=== PATIENT | female | born 1990 | race Caucasian/White ===

== ENCOUNTER 2018-02-13 19:20 | Inpatient (IN) | payer MEDICAID, OTHER ==
[2018-02-13] MEDS ORDERED: Sodium Chloride 0.9% 1,000 ML IV STA ×2 (20:43→23:17)
[2018-02-13 21:30] LABS: PH,URINE 6.5 (4.7-8.0); URINE APPEARANCE CLEAR (CLEAR); URINE BILIRUBIN NEGATIVE (NEGATIVE); URINE BLOOD TRACE-INTACT (NEGATIVE); URINE COLOR YELLOW (YELLOW); URINE GLUCOSE (UA) NEGATIVE (NEGATIVE); URINE LEUKOCYTE ESTERASE NEGATIVE Leu/uL (NEGATIVE); URINE PROTEIN NEGATIVE mg/dL (<30 mg/dL); URINE UROBILINOGEN 0.2 E.U./dL (<1 E.U./dL)
[2018-02-13 21:39] LABS: URINE RBC 0 - 2 /hpf (0-2); URINE WBC NEGATIVE /hpf (0-6)
[2018-02-13 22:10] LABS: VENOUS BLOOD GAS BASE EXCESS 0.5 mmol/L (0.0-2.0); VENOUS BLOOD GAS PO2 28 mm/Hg (30-55); VENOUS BLOOD PH 7.34 (7.32-7.43)
[2018-02-13 22:22] LABS: BASO # 0.05 K/mm3 (0.0-2.0); BASO % 0.3 % (0.0-3.0); EOS # 0.3 (0.0-0.7); GRAN # 10.7 (1.4-6.5); GRAN % 67.1 % (50.0-68.0); HEMOGLOBIN 12.6 g/dL (12.0-16.0); LYMPH # 4.1 (1.2-3.4); LYMPH % 25.8 % (22.0-35.0); MEAN CELL VOLUME 70.2 fl (80.0-105.0); MEAN CORPUSCULAR HEMOGLOBIN 22.4 pg (25.0-35.0); MEAN CORPUSCULAR HGB CONC 31.9 g/dl (31.0-37.0); MEAN PLATELET VOLUME 9.3 fl (7.0-11.0); MONO # 0.8 (0.1-0.6); MONO % 4.8 % (1.0-6.0); RBC 5.63 10^6/uL (3.5-6.1); RED CELL DISTRIBUTION WIDTH 21.9 % (11.5-14.5); WHITE BLOOD COUNT 15.9 10^3/ul (4.5-11.0)
[2018-02-13 22:30] LABS: INR 1.21 (0.93-1.08); PARTIAL THROMBOPLASTIN TIME 32.3 Seconds (25.1-36.5); PROTHROMBIN TIME 13.8 SECONDS (9.4-12.5)
[2018-02-13 22:41] LABS: ALB/GLOB RATIO 1.1 (1.1-1.8); ALBUMIN 4.5 g/dL (3.0-4.8); ALT/SGPT 26 U/L (7-56); AST/SGOT 37 U/L (14-36); BLOOD UREA NITROGEN 13 mg/dL (7-21); GFR AFRICAN-AMERICAN > 60; GFR NON-AFRICAN AMERICAN > 60
--- NOTE | 2018-02-14 00:46 | ED PDOC ---
Arrival/HPI - General Chief Complaint: Dizziness/Lightheaded Time Seen by Provider: 02/13/18 20:42 Historian: Patient - History of Present Illness Narrative History of Present Illness (Text): 02/14/18 01:30 27-year-old female presents today with a history of feeling fatigued having intermittent dizziness and having intermittent blurred vision. Patient states she also has been having pain in her arms bilaterally as well as a numbness and tingling sensation in the hands bilaterally. Patient states the tingling sensation in the hands has been going on for the past 2 months. She denies chest pain or shortness of breath. She denies any fevers or chills. Denies URI symptoms. Denies abdominal pain. Denies urinary symptoms. Patient states she just been feeling generally fatigued. Denies any sick contacts at home. No medications have been taken. No other complaints Time/Duration: > week (2 weeks) Symptom Onset: Gradual Symptom Course: Worsening Past Medical History - Provider Review Nursing Documentation Reviewed: Yes - Travel History Have you recently traveled outside [place] w/in the past 3 mons?: No - Infectious Disease Hx of Infectious Diseases: None - Cardiac Hx Cardiac Disorders: No - Pulmonary Hx Respiratory Disorders: No - Neurological Hx Neurological Disorder: No - HEENT Hx HEENT Disorder: No - Renal Hx Renal Disorder: No - Endocrine/Metabolic Hx Endocrine Disorders: No - Hematological/Oncological Hx Blood Disorders: Yes Hx Anemia: Yes Other/Comment: Ferrousitosis - Integumentary Hx Dermatological Disorder: No - Musculoskeletal/Rheumatological Hx Musculoskeletal Disorders: No - Gastrointestinal Hx Gastrointestinal Disorders: No - Genitourinary/Gynecological Hx Genitourinary Disorders: No - Psychiatric Hx Psychophysiologic Disorder: No Hx Substance Use: No - Surgical History Hx Splenectomy: Yes - Anesthesia Hx Anesthesia: Yes Hx Anesthesia Reactions: No Hx Malignant Hyperthermia: No Family/Social History - Physician Review Nursing Documentation Reviewed: Yes Family/Social History: Unknown Family HX Smoking Status: Never Smoked Hx Alcohol Use: No Hx Substance Use: No Allergies/Home Meds Allergies/Adverse Reactions: Allergies Penicillins Allergy (Verified 02/13/18 20:10) RASH Home Medications: Home Meds Medication Instructions Recorded Confirmed Ferrous Sulfate [High Potency Iron] 1 tab PO DAILY 02/13/18 02/13/18 Multivitamin [Daily Vitamin 1 tab PO DAILY 02/13/18 02/13/18 Formula] Review of Systems - Review of Systems Constitutional: Fatigue. absent: Fevers Eyes: Vision Changes. absent: Photophobia, Eye Pain Respiratory: absent: SOB, Cough Cardiovascular: absent: Chest Pain, Palpitations Gastrointestinal: absent: Abdominal Pain, Constipation, Diarrhea, Nausea, Vomiting Genitourinary Female: absent: Dysuria, Frequency, Hematuria Musculoskeletal: absent: Arthralgias, Back Pain, Neck Pain Skin: absent: Rash, Pruritis Neurological: Dizziness. absent: Headache Psychiatric: absent: Anxiety, Depression, Suicidal Ideation Physical Exam Vital Signs Reviewed: Yes Vital Signs Temp Pulse Resp BP Pulse Ox 02/13/18 21:51 91 H 18 125/80 100 02/13/18 19:53 99.7 F H 116 H 18 132/88 99 Temperature: Afebrile Blood Pressure: Normal Pulse: Tachycardic Respiratory Rate: Normal Appearance: Positive for: Well-Appearing, Non-Toxic, Comfortable Pain Distress: None Mental Status: Positive for: Alert and Oriented X 3 - Systems Exam Head: Present: Atraumatic Pupils: Present: PERRL Extroacular Muscles: Present: EOMI Mouth: Present: Moist Mucous Membranes Neck: Present: Normal Range of Motion Respiratory/Chest: Present: Clear to Auscultation, Good Air Exchange. No: Respiratory Distress, Accessory Muscle Use Cardiovascular: Present: Regular Rate and Rhythm, Normal S1, S2. No: Murmurs Abdomen: No: Tenderness, Distention, Peritoneal Signs, Rebound, Guarding Upper Extremity: Present: Normal ROM, Neurovascularly Intact Lower Extremity: Present: Normal ROM, Neurovascularly Intact Neurological: Present: GCS=15, Speech Normal, Motor Func Grossly Intact, Normal Sensory Function Skin: Present: Warm, Dry, Normal Color. No: Rashes Psychiatric: Present: Alert, Oriented x 3 Medical Decision Making ED Course and Treatment: 02/14/18 01:32 27-year-old female presents with generalized fatigue and blurred vision and dizziness Patient was found to be tachycardic in the emergency room CBC White blood cell count 15.9 CMP within normal limits INR 1.12 Urinalysis shows positive blood Chest x-ray no infiltrate or effusion Patient given 2 L of normal saline IV bolus Meclizine given for dizziness CAT scan of the head:FINDINGS: Brain: Multiple areas of white matter hypodensity seen within bilateral deep white matter. No hemorrhage. Ventricles: Unremarkable. No ventriculomegaly. Bones/joints: Unremarkable. No acute fracture. Soft tissues: Unremarkable. Sinuses: Unremarkable as visualized. No acute sinusitis. Mastoid air cells: Unremarkable as visualized. No mastoid effusion. IMPRESSION: Multiple areas of white matter hypodensity seen within bilateral deep white matter. Multiple sclerosis should be considered in this age group. Recommend further workup. I discussed all results in depth with the patient and her mother. Case was discussed with Dr. Graham. He would like the patient admitted to the hospitalist service Case was discussed with Dr. Huerta; accepts admission impression; dizziness r/o MS admit observational status to med/surg Reassessment Condition: Re-examined, Unchanged - Lab Interpretations Lab Results: 02/13/18 21:50 02/13/18 21:50 Lab Results 02/13/18 22:05: pO2 28 L, VBG pH 7.34, VBG pCO2 50.0, VBG HCO3 27.0, VBG Total CO2 28.5 H, VBG O2 Sat (Calc) 66.9 H, VBG Base Excess 0.5, VBG Potassium 4.4, Glucose 109 H, Lactate 1.2, FiO2 21.0, Sodium 138.0, Chloride 106.0, Venous Blood Potassium 4.4 02/13/18 21:50: Sodium 141, Potassium 4.3, Chloride 103, Carbon Dioxide 24, Anion Gap 18, BUN 13, Creatinine 0.6 L, Est GFR ( Amer) > 60, Est GFR ( Non-Af Amer) > 60, Random Glucose 103, Calcium 10.0, Phosphorus 4.4, Magnesium 2.1, Total Bilirubin 0.2, AST 37 H, ALT 26, Alkaline Phosphatase 68, Total Protein 8.5 H, Albumin 4.5, Globulin 4.0, Albumin/Globulin Ratio 1.1 02/13/18 21:50: PT 13.8 H, INR 1.21 H, APTT 32.3 02/13/18 21:50: WBC 15.9 H, RBC 5.63, Hgb 12.6, Hct 39.5, MCV 70.2 L, MCH 22.4 L , MCHC 31.9, RDW 21.9 H, Plt Count 603 H, MPV 9.3, Gran % 67.1, Lymph % (Auto) 25.8, [place] % (Auto) 4.8, Eos % (Auto) 2.0, Baso % (Auto) 0.3, Gran # 10.70 H, Lymph # (Auto) 4.1 H, [place] # (Auto) 0.8 H, Eos # (Auto) 0.3, Baso # (Auto) 0.05 02/13/18 21:10: Urine Color Yellow, Urine Appearance Clear, Urine pH 6.5, Ur Specific Preston <= 1.005, Urine Protein Negative, Urine Glucose (UA) Negative, Urine Ketones Negative, Urine Blood Trace-intact H, Urine Nitrate Negative, Urine Bilirubin Negative, Urine Urobilinogen 0.2, Ur Leukocyte Esterase Negative , Urine RBC 0 - 2, Urine WBC Negative - RAD Interpretation Radiology Orders: 02/13/18 20:42 CHEST PORTABLE [RAD] Stat 02/13/18 21:18 HEAD W/O CONTRAST [CT] Stat - Medication Orders Current Medication Orders: Discontinued Medications Sodium Chloride (Sodium Chloride 0.9%) 1,000 mls @ 999 mls/hr IV .Q1H1M STA Stop: 02/13/18 21:43 Last Admin: 02/13/18 22:02 Dose: 999 mls/hr eMAR Start Stop Document 02/13/18 22:02 HI (Rec: 02/13/18 22:02 [email or web address] Intravenous Solution Start Date 02/13/18 Start Time 21:50 Sodium Chloride (Sodium Chloride 0.9%) 1,000 mls @ 999 mls/hr IV .Q1H1M STA Stop: 02/14/18 00:17 Last Admin: 02/13/18 23:40 Dose: 999 mls/hr eMAR Start Stop Document 02/13/18 23:40 HI (Rec: 02/13/18 23:40 [email or web address] Intravenous Solution Start Date 02/13/18 Start Time 23:40 Meclizine HCl (Antivert) 25 mg PO STAT STA Stop: 02/13/18 23:17 Last Admin: 02/13/18 23:40 Dose: 25 mg Disposition/Present on Arrival - Present on Arrival Any Indicators Present on Arrival: No History of DVT/PE: No History of Uncontrolled Diabetes: No Urinary Catheter: No History of Decub. Ulcer: No History Surgical Site Infection Following: None - Disposition Have Diagnosis and Disposition been Completed?: Yes Diagnosis: Dizziness, Leukocytosis Disposition: HOSPITALIZED Disposition Time: 00:38 Patient Plan: Observation Condition: FAIR
[2018-02-14] MEDS ORDERED: methylPREDNISolone 1 GM in Sodium Chloride 0.9% 250 ML IV ONE (01:41)
--- NOTE | 2018-02-14 02:00 | CP.PCM.HP ---
<LeeFelipe - Last Filed: 02/14/18 02:31> History of Present Illness - History of Present Illness History of Present Illness: PGY-[address] Huerta Ms. Elliott is a 27 year old female with PMH of hereditary spherocytosis s/p splenectomy who presented to ED with dizziness, blurred vision, and numbness/ tingling type pains. She states that the dizziness has been going on for the past two weeks and is getting worse. She states that she feels as if she's going to fall over but denies syncope. The blurred vision has also been getting worse for the past two weeks. She states that she's had constant numbness/ tingling in her hands since December. She's also had numbness/tingling in her arms and legs bilaterally since December but this comes and goes. She denies headaches, changes in sensation, chest pain, shortness of breath, nausea, vomiting, or abdominal pain. PMH: hereditary spherocytosis Medications: none except for vitamin and iron supplements PSH: splenectomy Allergies: penicillin causes urticaria Fam Hx: mother has hereditary spherocytosis Social Hx: denies tobacco and drug use, reports occasional alcohol use. She is currently unemployed and is living with her mother Present on Admission - Present on Admission Any Indicators Present on Admission: No History of DVT/PE: No History of Uncontrolled Diabetes: No Urinary Catheter: No Decubitus Ulcer Present: No Review of Systems - Review of Systems Review of Systems: A 12 point ROS was reviewed with patient and negative except as stated in HPI Past Patient History - Infectious Disease Hx of Infectious Diseases: None - Past Social History Smoking Status: Never Smoked - CARDIAC Hx Cardiac Disorders: No - PULMONARY Hx Respiratory Disorders: No - NEUROLOGICAL Hx Neurological Disorder: No - HEENT Hx HEENT Problems: No - RENAL Hx Chronic Kidney Disease: No - ENDOCRINE/METABOLIC Hx Endocrine Disorders: No - HEMATOLOGICAL/ONCOLOGICAL Hx Blood Disorders: Yes Hx Anemia: Yes Other/Comment: Ferrousitosis - INTEGUMENTARY Hx Dermatological Problems: No - MUSCULOSKELETAL/RHEUMATOLOGICAL Hx Musculoskeletal Disorders: No - GASTROINTESTINAL Hx Gastrointestinal Disorders: No - GENITOURINARY/GYNECOLOGICAL Hx Genitourinary Disorders: No - PSYCHIATRIC Hx Psychophysiologic Disorder: No Hx Substance Use: No - SURGICAL HISTORY Hx Splenectomy: Yes - ANESTHESIA Hx Anesthesia: Yes Hx Anesthesia Reactions: No Hx Malignant Hyperthermia: No Meds Allergies/Adverse Reactions: Allergies Allergy/AdvReac Type Severity Reaction Status Date / Time Penicillins Allergy RASH Verified 02/13/18 20:10 Physical Exam - Constitutional Appears: No Acute Distress - Head Exam Head Exam: ATRAUMATIC, NORMAL INSPECTION, NORMOCEPHALIC - Eye Exam Eye Exam: EOMI, Normal appearance, PERRL - ENT Exam ENT Exam: Mucous Membranes Moist - Neck Exam Neck exam: Positive for: Normal Inspection. Negative for: Lymphadenopathy - Respiratory Exam Respiratory Exam: Clear to Auscultation Bilateral, NORMAL BREATHING PATTERN. absent: Accessory Muscle Use, Rales, Rhonchi, Wheezes - Cardiovascular Exam Cardiovascular Exam: REGULAR RHYTHM, RRR, +S1, +S2. absent: Diastolic murmur, Gallop, JVD, Rubs, Systolic Murmur - GI/Abdominal Exam GI & Abdominal Exam: Normal Bowel Sounds, Soft. absent: Guarding, Organomegaly , Rebound - Extremities Exam Extremities exam: Positive for: normal inspection. Negative for: calf tenderness, pedal edema - Neurological Exam Neurological exam: Alert, CN II-XII Intact, Oriented x3, Reflexes Normal Additional comments: Strength 5/5 in bilateral upper and lower extremities - Psychiatric Exam Psychiatric exam: Normal Affect, Normal Mood - Skin Skin Exam: Dry, Intact, Normal Color, Warm Results - Vital Signs Recent Vital Signs: Last Vital Signs Temp 99.7 F H 02/13/18 19:53 Pulse 80 02/14/18 01:32 Resp 18 02/14/18 01:32 BP 149/83 02/14/18 01:26 Pulse Ox 98 02/14/18 01:32 - Labs Result Diagrams: 02/13/18 21:50 02/13/18 21:50 Assessment & Plan - Assessment and Plan (Free Text) Assessment: Ms. Elliott is a 27 year old female with PMH of hereditary spherocytosis who presents with suspected multiple sclerosis exacerbation. 1. Suspected multiple sclerosis exacerbation -Initial diagnosis but symptoms and imaging are suspicious for multiple sclerosis -Neurology consult -MRI brain w/o contrast ordered -Methylprednisone 1g given for presumed MS exacerbation 2. Leukocytosis -May be secondary to MS exacerbation -Septic w/u completed -Will continue to monitor following methylprednisone treatment 3. History of hereditary spherocytosis -Had splenectomy early in life -Currently asymptomatic Patient seen and discussed with Dr. Huerta attending. Felipe Lee, DO IM Resident PGY-1 <Deniz Huerta - Last Filed: 02/14/18 05:40> Results - Vital Signs Recent Vital Signs: Last Vital Signs Temp 98.7 F 02/14/18 02:00 Pulse 84 02/14/18 02:00 Resp 20 02/14/18 02:00 BP 112/74 02/14/18 02:00 Pulse Ox 98 02/14/18 02:00 - Labs Result Diagrams: 02/13/18 21:50 02/13/18 21:50 Attending/Attestation - Attestation I have personally seen and examined this patient.: Yes I have fully participated in the care of the patient.: Yes I have reviewed all pertinent clinical information: Yes Notes (Text): Patient seen and examined with the residents. Agree with above Symptoms as mentioned with paresthesias of the bilateral upper and lower extremities x2 months will f/u on MRI brain (recommended with Gadolinium); neuro consultation appreciated Pulsed steroids administered with Solumedrol 1g IV Mother at bedside
[2018-02-14] MEDS ORDERED: Iohexol 350 MG/100 ML VIAL ONE (07:59)
[2018-02-14 08:29] LABS: BASO # 0.05 K/mm3 (0.0-2.0); BASO % 0.3 % (0.0-3.0); EOS # 0.2 (0.0-0.7); EOS % 0.9 % (1.5-5.0); GRAN # 11.53 (1.4-6.5); GRAN % 61.4 % (50.0-68.0); HEMOGLOBIN 11.1 g/dL (12.0-16.0); LYMPH % 32.1 % (22.0-35.0); MEAN CELL VOLUME 71.5 fl (80.0-105.0); MEAN CORPUSCULAR HEMOGLOBIN 22.2 pg (25.0-35.0); MEAN PLATELET VOLUME 9.5 fl (7.0-11.0); MONO % 5.3 % (1.0-6.0); RBC 5.01 10^6/uL (3.5-6.1); RED CELL DISTRIBUTION WIDTH 22.2 % (11.5-14.5); WHITE BLOOD COUNT 18.8 10^3/ul (4.5-11.0)
[2018-02-14 08:49] LABS: ALB/GLOB RATIO 1.1 (1.1-1.8); ALBUMIN 3.7 g/dL (3.0-4.8); ALT/SGPT 30 U/L (7-56); AST/SGOT 33 U/L (14-36); BLOOD UREA NITROGEN 9 mg/dL (7-21); CALCIUM 8.8 mg/dL (8.4-10.5); GFR AFRICAN-AMERICAN > 60; GFR NON-AFRICAN AMERICAN > 60
--- NOTE | 2018-02-14 09:11 | CT ---
PROCEDURE: CT HEAD WITHOUT CONTRAST. HISTORY: dizziness COMPARISON: None available. TECHNIQUE: Axial computed tomography images were obtained through the head/brain without intravenous contrast. Radiation dose: Total exam DLP = 864.59 mGy-cm. This CT exam was performed using one or more of the following dose reduction techniques: Automated exposure control, adjustment of the mA and/or kV according to patient size, and/or use of iterative reconstruction technique. FINDINGS: HEMORRHAGE: No intracranial hemorrhage. BRAIN: No mass effect or edema. Mild periventricular white matter lucency with patchy foci of deep/ subcortical lucency. Although this may reflect microvascular white matter ischemic change, given the age of this patient, the possibility of a demyelinating disorder should also be considered. Recommend urologic console to in the appropriate clinical circumstance. VENTRICLES: Unremarkable. No hydrocephalus. CALVARIUM: Unremarkable. PARANASAL SINUSES: Unremarkable as visualized. No significant inflammatory changes. MASTOID AIR CELLS: Unremarkable as visualized. No inflammatory changes. OTHER FINDINGS: None. IMPRESSION: Multifocal white matter ischemic change. Cannot rule out demyelinating disorder. See above. No intracranial mass, hemorrhage or evidence of acute infarct. Preliminary interpretation of this examination was reported by [facility] at 11:41 p.m. on 02/13/2018. There is concurrence of this report with the preliminary interpretation.
--- NOTE | 2018-02-14 09:16 | CARD ---
APPROVED REPORT EKG Measurement Heart [id number] CT [id number] <Conclusion> Normal sinus rhythm NSSTW changes
--- NOTE | 2018-02-14 11:54 | CP.PCM.CON ---
History of Present Illness - History of Present Illness History of Present Illness: Neurology Consult note for Dr. Rapp CC: Dizziness, Bilateral UE numbness HPI: Patient is a 27 year old female with past medical history of hereditary spherocystosis s/p spleenectomy who presented to [facility] complaining of a few week history of dizziness, bulrry vision, numbness and tingling type sensation mostly in her upper extremities on both sides. Patient reports that her symptoms of dizziness have been ongoing for the past 2 weeks and that her feelings of numbness and tingling have been constant for the past month and a half. Her blurry vision is sometimes reported as double vision that occurs primarily during the day and sometimes at night. Denies unsteady gait, falls, loss of vision, spastic jerking movements, poor coordination. Patient denies previous episodes of presenting symptoms. PMH: Hereditary Spherocytosis PSH: Spleenectomy FMH: Mother with Hereditary spherocytosis SOChx: Denies Tobacco, ETOH, ID ALL: PCN (urticaria) MEDS: Vitamins, Iron supplements Review of Systems - Constitutional Constitutional: Headache, Weight Loss (10 pounds unintentional past month). absent: Chills, Fever, Frequent Falls, Night Sweats - EENT Eyes: Blurred Vision, Diplopia. absent: Discharge, Floaters, Loss of Peripheral Vision, Pain Ears: absent: Decreased Hearing, Ear Discharge Nose/Mouth/Throat: absent: Nasal Congestion, Nasal Discharge, Post Nasal Drip, Change in Voice - Cardiovascular Cardiovascular: absent: Chest Pain, Dyspnea - Respiratory Respiratory: absent: Cough, Dyspnea, Hemoptysis - Gastrointestinal Gastrointestinal: absent: Abdominal Pain, Belching, Bloating, Change in Bowel Habits - Genitourinary Genitourinary: absent: Change in Urinary Stream, Difficulty Urinating - Musculoskeletal Musculoskeletal: Numbness (upper extremity foreram and hand b/l). absent: Arthralgias, Atrophy - Integumentary Integumentary: absent: Acne, Alopecia, Change in Hair - Neurological Neurological: Dizziness, Numbness, Headaches, Paresthesias, Tingling. absent: Abnormal Gait, Abnormal Hearing, Abnormal Movements, Confusion, Convulsions, Focal Weakness, Frequent Falls, Loss of Vision, Memory Loss, Sensory Deficit, Syncope, Weakness - Psychiatric Psychiatric: absent: Anxiety, Confusion, Mood Swings - Endocrine Endocrine: absent: Cold Intolorance, Fatigue, Palpitations Past Patient History - Infectious Disease Hx of Infectious Diseases: None - Past Social History Smoking Status: Never Smoked Alcohol: None Drugs: Denies - CARDIAC Hx Cardiac Disorders: No - PULMONARY Hx Respiratory Disorders: No - NEUROLOGICAL Hx Neurological Disorder: No - HEENT Hx HEENT Problems: No - RENAL Hx Chronic Kidney Disease: No - ENDOCRINE/METABOLIC Hx Endocrine Disorders: No - HEMATOLOGICAL/ONCOLOGICAL Hx Blood Disorders: Yes Hx Anemia: Yes Other/Comment: Ferrousitosis - INTEGUMENTARY Hx Dermatological Problems: No - MUSCULOSKELETAL/RHEUMATOLOGICAL Hx Musculoskeletal Disorders: No - GASTROINTESTINAL Hx Gastrointestinal Disorders: No - GENITOURINARY/GYNECOLOGICAL Hx Genitourinary Disorders: No - PSYCHIATRIC Hx Psychophysiologic Disorder: No Hx Substance Use: No - SURGICAL HISTORY Hx Splenectomy: Yes - ANESTHESIA Hx Anesthesia: Yes Hx Anesthesia Reactions: No Hx Malignant Hyperthermia: No Meds Allergies/Adverse Reactions: Allergies Allergy/AdvReac Type Severity Reaction Status Date / Time Penicillins Allergy RASH Verified 02/13/18 20:10 Physical Exam - Constitutional Appears: Non-toxic, No Acute Distress - Head Exam Head Exam: ATRAUMATIC, NORMAL INSPECTION, NORMOCEPHALIC - Eye Exam Eye Exam: EOMI, PERRL - ENT Exam ENT Exam: Mucous Membranes Moist - Respiratory Exam Respiratory Exam: Clear to Auscultation Bilateral, NORMAL BREATHING PATTERN - Cardiovascular Exam Cardiovascular Exam: REGULAR RHYTHM, +S1, +S2 - GI/Abdominal Exam GI & Abdominal Exam: Normal Bowel Sounds, Soft. absent: Tenderness - Extremities Exam Extremities exam: Positive for: full ROM. Negative for: calf tenderness, pedal edema, tenderness - Neurological Exam Neurological exam: Alert, CN II-XII Intact, Normal Gait, Oriented x3, Reflexes Normal Additional comments: Fine motor deficits appreciated Coates to heel test normal Downgoing babinski Negative Rhomberg Coordination intact, mild ataxia of upper extremities b/l negative clonus Strength 5/5 in all four extremities Proximal muscle in UE and LE 5/5 Negative for tremor - Psychiatric Exam Psychiatric exam: Normal Affect, Normal Mood - Skin Skin Exam: Dry, Intact Results - Vital Signs Recent Vital Signs: Last Vital Signs Temp 98.8 F 02/14/18 06:00 Pulse 84 02/14/18 06:00 Resp 20 02/14/18 06:00 BP 107/63 02/14/18 06:00 Pulse Ox 97 02/14/18 06:00 - Labs Result Diagrams: 02/14/18 08:15 02/14/18 08:15 Labs: Laboratory Results - last 24 hr 02/14/18 02/14/18 02/14/18 06:30 08:15 08:15 WBC 18.8 H RBC 5.01 Hgb 11.1 L Hct 35.8 L MCV 71.5 L MCH 22.2 L MCHC 31.0 RDW 22.2 H Plt Count 575 H MPV 9.5 Gran % 61.4 Lymph % (Auto) 32.1 Angelina % (Auto) 5.3 Eos % (Auto) 0.9 L Baso % (Auto) 0.3 Gran # 11.53 H Lymph # (Auto) 6.0 H Angelina # (Auto) 1.0 H Eos # (Auto) 0.2 Baso # (Auto) 0.05 Sodium 143 Potassium 4.4 Chloride 108 H Carbon Dioxide 23 Anion Gap 16 BUN 9 Creatinine 0.5 L Est GFR ( Amer) > 60 Est GFR (Non-Af Amer) > 60 Random Glucose 88 Calcium 8.8 Total Bilirubin 0.5 AST 33 ALT 30 Alkaline Phosphatase 62 Total Protein 7.2 Albumin 3.7 Globulin 3.4 Albumin/Globulin Ratio 1.1 TSH 3rd Generation 4.28 Assessment & Plan - Assessment and Plan (Free Text) Assessment: 27 yo female with past medical history of hereditary spherocytosis s/p spleenectomy who presnted to [facility] with multiple week history of numbness and tingling sensation in her upper and lower extremities. Patient had Head CT preformed showing multifocal white matter ischemic changes, multiple areas of white matter hypodensity seen within bilateral deep white matter suggestive of multiple sclerosis. Paresthesias/numbness of upper extremities b/l - Possible manifestation of Multiple Sclerosis exacerbation - Head CT appreciated see report for details - MRI w/ contrast pending - Head/Neck CTA pending - Lumbar puncture - CSF labs including MBP, IgG index, Oligoclonal bands, protein, glucose, lymphocytes, electrophoresis, NMO antibodies, West Nile Virus, HSV - Solumedrol 1gram administered - Further recommendations per Dr. Rapp Case and Plan discussed with attending, Dr. Dionte Ruggiero PGY-2 - Date & Time Date: 02/14/18 Time: 11:55
--- NOTE | 2018-02-14 12:05 | RAD ---
HISTORY: fatigue COMPARISON: No prior. FINDINGS: LUNGS: No active pulmonary disease. PLEURA: No significant pleural effusion identified, no pneumothorax apparent. CARDIOVASCULAR: Normal. OSSEOUS STRUCTURES: No significant abnormalities. VISUALIZED UPPER ABDOMEN: Normal. OTHER FINDINGS: None. IMPRESSION: No active disease.
[2018-02-14] MEDS ORDERED: Lidocaine 1% Inj (20ml) ONE ×2 (14:24→14:28)
--- NOTE | 2018-02-14 14:57 | PCM.PROC ---
Procedures Attestation:: I certify that I have explained the specified Operation(s) or Procedure(s), risks, benefits and reasonable alternatives to the Patient and/or other person responsible. The opportunity was given to ask questions and all questions answered - Lumbar Puncture Consent Obtained: Written Consent Time Out Performed: Yes Patient Position: Upright Skin Prep: Povidone-Iodine 1% Local Anesthetic Used: Lidocaine 1% Spinal Needle Gauge: 22G Interspace Used: L3-L4 Fluid Initially Obtained: Clear Complications: None
--- NOTE | 2018-02-14 15:46 | CT ---
PROCEDURE: CT Angiography of the neck with contrast HISTORY: Dizziness COMPARISON: Comparison made with concurrent CT scan brain. TECHNIQUE: Contiguous axial images of the neck were obtained from the level of the skull-base to the superior mediastinum in the arteriographic phase of enhancement. Coronal and sagittal reformats or also generated. IV contrast dose: 400 cc Omnipaque 350 contrast material Radiation Dose - DLP: 467.86 mGy-cm This CT exam was performed using one or more of the following dose reduction techniques: Automated exposure control, adjustment of the mA and/or kV according to patient size, and/or use of iterative reconstruction technique. FINDINGS: Aortic arch is patent. The right brachiocephalic and left common carotid artery arise from a common trunk. RIGHT CAROTID ARTERIES: Common Carotid Artery: Normal. Carotid Bifurcation: Normal. Internal Carotid Artery:Normal. External Carotid Artery (proximal branches): Normal. LEFT CAROTID ARTERIES: Common Carotid Artery: Normal. Carotid Bifurcation: Normal. Internal Carotid Artery:Normal. External Carotid Artery (proximal branches): Normal. VERTEBRAL ARTERIES: Right Vertebral Artery: Normal. Left Vertebral Artery: Normal. OTHER FINDINGS: The note made of mildly enlarged bilateral submandibular and right jugular digastric lymph nodes. IMPRESSION: Normal CT Angiography of the neck.
[2018-02-15 06:54] LABS: BASO # 0.01 K/mm3 (0.0-2.0); GRAN # 18.68 (1.4-6.5); GRAN % 81.1 % (50.0-68.0); HEMOGLOBIN 11.4 g/dL (12.0-16.0); LYMPH # 3.2 (1.2-3.4); LYMPH % 13.7 % (22.0-35.0); MEAN CELL VOLUME 71.3 fl (80.0-105.0); MEAN CORPUSCULAR HEMOGLOBIN 22.4 pg (25.0-35.0); MEAN CORPUSCULAR HGB CONC 31.5 g/dl (31.0-37.0); MEAN PLATELET VOLUME 9.1 fl (7.0-11.0); MONO # 1.2 (0.1-0.6); MONO % 5.2 % (1.0-6.0); RBC 5.08 10^6/uL (3.5-6.1); RED CELL DISTRIBUTION WIDTH 22.4 % (11.5-14.5); WHITE BLOOD COUNT 23.1 10^3/ul (4.5-11.0)
[2018-02-15 07:31] LABS: ALB/GLOB RATIO 1.1 (1.1-1.8); ALBUMIN 3.9 g/dL (3.0-4.8); ALT/SGPT 27 U/L (7-56); AST/SGOT 26 U/L (14-36); BLOOD UREA NITROGEN 12 mg/dL (7-21); CALCIUM 9.3 mg/dL (8.4-10.5); GFR AFRICAN-AMERICAN > 60; GFR NON-AFRICAN AMERICAN > 60
[2018-02-15] MEDS ORDERED: Gadodiamide 287 MG/ML VIAL (15ML) IV ONE (12:17)
--- NOTE | 2018-02-15 14:04 | CP.PCM.PN ---
<Catrachito Sinclair - Last Filed: 02/15/18 18:05> Subjective - Date & Time of Evaluation Date of Evaluation: 02/15/18 Time of Evaluation: 11:30 - Subjective Subjective: Pt seen and examined at bedside. Observed ambulating to and from bathroom this am without concerns. States she slept well overnight, tolerating PO diet, only c /o soreness from area of lumbar puncture yesterday. Denies bleeding, abnormal discharge, or headache. States numbness/tingling in upper extremities is improving. Objective - Vital Signs/Intake and Output Vital Signs (last 24 hours): Temp Pulse Resp BP Pulse Ox 98.4 F 68 20 110/65 100 02/15/18 06:00 02/15/18 06:00 02/15/18 06:00 02/15/18 06:00 02/15/18 06:00 Intake and Output: 02/15/18 02/15/18 06:59 18:59 Intake Total 240 Balance 240 - Labs Labs: 02/15/18 06:00 02/15/18 06:00 PT 13.8 SECONDS (9.4-12.5) H 02/13/18 21:50 INR 1.21 (0.93-1.08) H 02/13/18 21:50 APTT 32.3 Seconds (25.1-36.5) 02/13/18 21:50 - Constitutional Appears: Well, Non-toxic, No Acute Distress - Head Exam Head Exam: ATRAUMATIC, NORMAL INSPECTION - Eye Exam Eye Exam: EOMI, Normal appearance, PERRL - ENT Exam ENT Exam: Mucous Membranes Moist, Normal Oropharynx - Neck Exam Neck Exam: Full ROM, Normal Inspection - Respiratory Exam Respiratory Exam: Clear to Ausculation Bilateral, NORMAL BREATHING PATTERN - Cardiovascular Exam Cardiovascular Exam: REGULAR RHYTHM, +S1, +S2 - GI/Abdominal Exam GI & Abdominal Exam: Soft, Normal Bowel Sounds - Extremities Exam Extremities Exam: Full ROM, Normal Capillary Refill, Normal Inspection - Back Exam Back Exam: NORMAL INSPECTION Additional comments: Site of lumbar puncture C/D/I - Neurological Exam Neurological Exam: Alert, Awake, CN II-XII Intact, Oriented x3, Reflexes Normal Neuro motor strength exam: Left Upper Extremity: 5, Right Upper Extremity: 5, Left Lower Extremity: 5, Right Lower Extremity: 5 - Psychiatric Exam Psychiatric exam: Normal Affect, Normal Mood - Skin Skin Exam: Dry, Intact, Normal Color, Warm Assessment and Plan - Assessment and Plan (Free Text) Assessment: 27 year old female with PMH of hereditary spherocytosis who presents with suspected multiple sclerosis exacerbation. 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 Maya, attending Catrachito Sinclair DO PGY-1, Rigger Up Pager #[phone] <Nathaniel Maya - Last Filed: 02/15/18 19:12> Objective - Vital Signs/Intake and Output Vital Signs (last 24 hours): Temp Pulse Resp BP Pulse Ox 99.6 F 70 18 120/69 99 02/15/18 16:30 02/15/18 16:30 02/15/18 16:30 02/15/18 16:30 02/15/18 16:30 Intake and Output: 02/15/18 02/16/18 18:59 06:59 Intake Total 960 Balance 960 - Medications Medications: Current Medications Acetaminophen (Tylenol 325mg Tab) 650 mg PO Q6H PRN PRN Reason: Fever >100.4 F Last Admin: 02/15/18 15:50 Dose: 650 mg Methylprednisolone 1 gm/ (Sodium Chloride) 250 mls @ 500 mls/hr IV DAILY GUANACO Stop: 02/18/18 10:29 - Labs Labs: PT 13.8 SECONDS (9.4-12.5) H 02/13/18 21:50 INR 1.21 (0.93-1.08) H 02/13/18 21:50 APTT 32.3 Seconds (25.1-36.5) 02/13/18 21:50 Attending/Attestation - Attestation I have personally seen and examined this patient.: Yes I have fully participated in the care of the patient.: Yes I have reviewed all pertinent clinical information, including history, physical exam and plan: Yes Notes (Text): 02/15/18 19:09 27 year old female who presents with paresthesias and dizziness. CT head showed multifocal white matter ischemic changes, possible demyelinating disorder. She was started on iv steroids for suspected multiple sclerosis. She is s/p LP yesterday; will follow up on results. MRI brain/spine were done today also suggestive of multiple sclerosis. She is on day 2 on solumedrol. Neurology and PT are following. Leukocytosis likely secondary to iv steroids. Will continue to monitor. Nathaniel Maya MD Hospitalist.
--- NOTE | 2018-02-15 14:05 | MRI ---
EXAM: MR Head Without And With Intravenous Contrast CLINICAL HISTORY: 27 years old, female; Signs and symptoms; Dizziness; Patient HX: Dizziness and tingling all over. Eval for ms; Additional info: Evaluation for ms TECHNIQUE: Magnetic resonance images of the head/brain without and with intravenous contrast in multiple planes. CONTRAST: 15 mL of OMNISCAN administered intravenously. COMPARISON: CT - HEAD W/O CONTRAST 2018-02-13 23:13 FINDINGS: Brain: There are innumerable high signal lesions in the periventricular white matter and right middle cerebellar peduncle, best seen on the flair images. The appearance is compatible with a demyelinating process such as multiple sclerosis. Postcontrast images demonstrate ring enhancement around several lesions, the largest lesion in the right parietal lobe white matter measuring 1.5 cm. Enhancement may indicate active demyelination. No hemorrhage. No acute infarct. Ventricles: Unremarkable. No ventriculomegaly. Bones/joints: Unremarkable. Sinuses: Unremarkable as visualized. No acute sinusitis. Mastoid air cells: Unremarkable as visualized. No mastoid effusion. Orbits: Unremarkable as visualized. IMPRESSION: There are innumerable high signal lesions in the periventricular white matter and right middle cerebellar peduncle, best seen on the flair images. The appearance is compatible with a demyelinating process such as multiple sclerosis. Postcontrast images demonstrate ring enhancement around several lesions, the largest lesion in the right parietal lobe white matter measuring 1.5 cm. Enhancement may indicate active demyelination.
--- NOTE | 2018-02-15 14:20 | MRI ---
EXAM: MR Cervical Spine Without And With Intravenous Contrast CLINICAL HISTORY: 27 years old, female; Signs and symptoms; Other: Dizziness and tingling all over; Patient HX: Evaluate for ms; Additional info: Evaluation TECHNIQUE: Magnetic resonance images of the cervical spine without and with intravenous contrast in multiple planes. CONTRAST: 15 mL of Omniscan administered intravenously. COMPARISON: CTA HEAD NECK BUNDLE 2018-02-14 08:21 FINDINGS: There is a 1.2 high signal lesion within the cervical cord at the T2 level consistent with a demyelinating plaque in this patient with suspected multiple sclerosis. There is no abnormal enhancement. There is mild ventral ridging from C3/4 through C6/7 which indent the ventral thecal sac and contribute to mild spinal canal stenosis. There are small superimposed central disc herniations at C5/6 and C6/7. IMPRESSION: 1. There is a 1.2 high signal lesion within the cervical cord at the T2 level consistent with a demyelinating plaque in this patient with suspected multiple sclerosis. There is no abnormal enhancement. 2. There is mild ventral ridging from C3/4 through C6/7 which indent the ventral thecal sac and contribute to mild spinal canal stenosis. There are small superimposed central disc herniations at C5/6 and C6/7.
[2018-02-15] MEDS ORDERED: methylPREDNISolone 1 GM in Sodium Chloride 0.9% 250 ML IV ONE (15:55)
[2018-02-16 07:58] LABS: BASO # 0.01 K/mm3 (0.0-2.0); BASO % 0.1 % (0.0-3.0); GRAN # 13.71 (1.4-6.5); GRAN % 87.6 % (50.0-68.0); HEMOGLOBIN 11.8 g/dL (12.0-16.0); LYMPH # 1.8 (1.2-3.4); LYMPH % 11.8 % (22.0-35.0); MEAN CELL VOLUME 70.9 fl (80.0-105.0); MEAN CORPUSCULAR HEMOGLOBIN 22.3 pg (25.0-35.0); MEAN CORPUSCULAR HGB CONC 31.5 g/dl (31.0-37.0); MEAN PLATELET VOLUME 10.3 fl (7.0-11.0); MONO # 0.1 (0.1-0.6); MONO % 0.5 % (1.0-6.0); RBC 5.29 10^6/uL (3.5-6.1); RED CELL DISTRIBUTION WIDTH 22.4 % (11.5-14.5); WHITE BLOOD COUNT 15.6 10^3/ul (4.5-11.0)
[2018-02-16 08:13] LABS: ALB/GLOB RATIO 1.2 (1.1-1.8); ALBUMIN 4.2 g/dL (3.0-4.8); ALT/SGPT 43 U/L (7-56); AST/SGOT 31 U/L (14-36); BLOOD UREA NITROGEN 15 mg/dL (7-21); CALCIUM 9.3 mg/dL (8.4-10.5); GFR AFRICAN-AMERICAN > 60; GFR NON-AFRICAN AMERICAN > 60
[2018-02-16] MEDS: methylPREDNISolone 1 GM in Sodium Chloride 0.9% 250 ML IV SCH (10:35)
--- NOTE | 2018-02-16 13:34 | CP.PCM.PN ---
Subjective - Date & Time of Evaluation Date of Evaluation: 02/16/18 Time of Evaluation: 13:30 - Subjective Subjective: Ms. Elliott was seen and examined today at bedside. I discussed with her the diagnosis of MS. Her brother was present and the patient gave consent for me to speak with him as well. The patient has spherocytosis and is s/p splenectomy and cholecystectomy. She is already immunocompromised due to the fact that she is asplenic. Choosing a [place] [facility] immune modulating medication will be difficult. However, she has heavy disease burden based on MRI brain. Objective - Vital Signs/Intake and Output Vital Signs (last 24 hours): Temp Pulse Resp BP Pulse Ox 98 F 64 16 116/67 99 02/16/18 06:00 02/16/18 06:00 02/16/18 06:00 02/16/18 06:00 02/16/18 06:00 Intake and Output: 02/16/18 02/16/18 06:59 18:59 Intake Total 480 Balance 480 - Medications Medications: Current Medications Acetaminophen (Tylenol 325mg Tab) 650 mg PO Q6H PRN PRN Reason: Fever >100.4 F Last Admin: 02/15/18 15:50 Dose: 650 mg Methylprednisolone 1 gm/ (Sodium Chloride) 250 mls @ 500 mls/hr IV DAILY GUANACO Stop: 02/18/18 10:29 Last Admin: 02/16/18 10:35 Dose: 500 mls/hr - Labs Labs: 02/16/18 07:00 02/16/18 07:00 PT 13.8 SECONDS (9.4-12.5) H 02/13/18 21:50 INR 1.21 (0.93-1.08) H 02/13/18 21:50 APTT 32.3 Seconds (25.1-36.5) 02/13/18 21:50 - Neurological Exam Additional comments: Neurologically unchanged compared with previous examination. Assessment and Plan (1) Multiple sclerosis Assessment & Plan: This is the first episode and it is difficult to determine the subtype, but it appears to be primary progressive based on MRI. This diagnosis can change later. I recommend that she has a total of 5 infusion of 1000 mg of Solumedrol. Afterward, we will plan for [facility] [facility] prophylactic therapy in the outpatient setting. I recommend PT/OT eval and treatment as well. Thank you. Status: Acute
--- NOTE | 2018-02-16 14:20 | CP.PCM.PN ---
<Catrachito Sinclair - Last Filed: 02/16/18 16:53> Subjective - Date & Time of Evaluation Date of Evaluation: 02/16/18 Time of Evaluation: 11:25 - Subjective Subjective: Pt seen and examined at bedside. Denies any acute complaints, states she slept well overnight, did not need pain medication. C/o occasional dizziness when ambulating, states numbness/tingling in upper extremities is improving. Objective - Vital Signs/Intake and Output Vital Signs (last 24 hours): Temp Pulse Resp BP Pulse Ox 98 F 64 16 116/67 99 02/16/18 06:00 02/16/18 06:00 02/16/18 06:00 02/16/18 06:00 02/16/18 06:00 Intake and Output: 02/16/18 02/16/18 06:59 18:59 Intake Total 480 Balance 480 - Medications Medications: Current Medications Acetaminophen (Tylenol 325mg Tab) 650 mg PO Q6H PRN PRN Reason: Fever >100.4 F Last Admin: 02/15/18 15:50 Dose: 650 mg Methylprednisolone 1 gm/ (Sodium Chloride) 250 mls @ 500 mls/hr IV DAILY GUANACO Stop: 02/18/18 10:29 Last Admin: 02/16/18 10:35 Dose: 500 mls/hr - Labs Labs: 02/16/18 07:00 02/16/18 07:00 PT 13.8 SECONDS (9.4-12.5) H 02/13/18 21:50 INR 1.21 (0.93-1.08) H 02/13/18 21:50 APTT 32.3 Seconds (25.1-36.5) 02/13/18 21:50 - Constitutional Appears: Well, Non-toxic, No Acute Distress - Head Exam Head Exam: ATRAUMATIC, NORMAL INSPECTION, NORMOCEPHALIC - Eye Exam Eye Exam: EOMI, Normal appearance, PERRL - ENT Exam ENT Exam: Mucous Membranes Moist, Normal Oropharynx - Neck Exam Neck Exam: Full ROM, Normal Inspection - Respiratory Exam Respiratory Exam: Clear to Ausculation Bilateral, NORMAL BREATHING PATTERN - Cardiovascular Exam Cardiovascular Exam: REGULAR RHYTHM, +S1, +S2 - GI/Abdominal Exam GI & Abdominal Exam: Soft, Normal Bowel Sounds - Neurological Exam Neurological Exam: Alert, Awake, CN II-XII Intact, Normal Gait, Oriented x3, Reflexes Normal - Psychiatric Exam Psychiatric exam: Normal Affect, Normal Mood - Skin Skin Exam: Dry, Intact, Normal Color, Warm Assessment and Plan - Assessment and Plan (Free Text) Assessment: 27 year old female with PMH of hereditary spherocytosis who presents with new- onset multiple sclerosis exacerbation. Plan: Multiple sclerosis exacerbation -Sxs and imaging suspecting for MS -Neurology consulted, f/u recs -CT: multifocal white matter ischemic change, cannot r/o demyelinating disorder -MRI brain: Innumerable high signal lesions in the periventricular white matter and right cerebellar peduncle, appearance compatible w/ demyelinating process such as multiple sclerosis. Postcontrast images demonstrate ring enhancement around severe lesions, the largest lesion in the R parietal lobe white matter measuring 1.5 cm. Enhancement may indicate active demyelination. -MRI spinal canal cervical: 1.2 high signal lesion within cervical cord at T2 consistent w/ a demyelinating plaque. Mild ventral ridging from C3/4-C6/7 which indent ventral thecal sac and contribute to mild spinal canal stenosis. Small superimposed central disc herniations at C5/6 and C6/7. -C/w steroids for management, tx for [address] Rapp (Neuro), today tx 3 /5. As per Dr. Rapp, pt will need to be on long-term management outpt. -Will continue to monitor clinically Leukocytosis -May be secondary to MS exacerbation/steroid administration -Sepsis w/u completed -Lumbar puncture: CSF glu 93, total protein 84; bacterial infection ruled out, further studies pending. -Will continue to monitor following steroid tx Hx of hereditary spherocytosis -Had splenectomy early in life -Currently asymptomatic Pt seen, examined with, and plan d/w Dr. Maya, attending Catrachito Sinclair DO PGY-1, Child Care Lead Teacher Pager #[phone] <Nathaniel Maya - Last Filed: 02/16/18 17:15> Objective - Vital Signs/Intake and Output Vital Signs (last 24 hours): Temp Pulse Resp BP Pulse Ox 99.4 F 72 20 118/65 98 02/16/18 14:00 02/16/18 14:00 02/16/18 14:00 02/16/18 14:00 02/16/18 14:00 Intake and Output: 02/16/18 02/16/18 06:59 18:59 Intake Total 480 720 Balance 480 720 - Medications Medications: Current Medications Acetaminophen (Tylenol 325mg Tab) 650 mg PO Q6H PRN PRN Reason: Fever >100.4 F Last Admin: 02/15/18 15:50 Dose: 650 mg Methylprednisolone 1 gm/ (Sodium Chloride) 250 mls @ 500 mls/hr IV DAILY GUANACO Stop: 02/18/18 10:29 Last Admin: 02/16/18 10:35 Dose: 500 mls/hr - Labs Labs: 02/16/18 07:00 02/16/18 07:00 PT 13.8 SECONDS (9.4-12.5) H 02/13/18 21:50 INR 1.21 (0.93-1.08) H 02/13/18 21:50 APTT 32.3 Seconds (25.1-36.5) 02/13/18 21:50 Attending/Attestation - Attestation I have personally seen and examined this patient.: Yes I have fully participated in the care of the patient.: Yes I have reviewed all pertinent clinical information, including history, physical exam and plan: Yes Notes (Text): 02/16/18 17:14 27 year old female who presented with paresthesias and dizziness. CT head showed multifocal white matter ischemic changes, possible demyelinating disorder. MRI brain/spine was also suggestive of multiple sclerosis. She is s/ p LP yesterday; will follow up on results. She is on day 3 out of 5 of solumedrol; will monitor for response. Neurology and PT are following. Leukocytosis likely secondary to iv steroids. WBC is improving today. Will continue to monitor. Nathaniel Maya MD Hospitalist.
[2018-02-17 08:19] LABS: BASO # 0.01 K/mm3 (0.0-2.0); BASO % 0.1 % (0.0-3.0); GRAN # 14.14 (1.4-6.5); GRAN % 73.4 % (50.0-68.0); HEMOGLOBIN 11.5 g/dL (12.0-16.0); LYMPH # 3.5 (1.2-3.4); LYMPH % 18.4 % (22.0-35.0); MEAN CELL VOLUME 70.9 fl (80.0-105.0); MEAN CORPUSCULAR HEMOGLOBIN 22.2 pg (25.0-35.0); MEAN CORPUSCULAR HGB CONC 31.3 g/dl (31.0-37.0); MEAN PLATELET VOLUME 9.9 fl (7.0-11.0); MONO # 1.6 (0.1-0.6); MONO % 8.1 % (1.0-6.0); RBC 5.19 10^6/uL (3.5-6.1); WHITE BLOOD COUNT 19.2 10^3/ul (4.5-11.0)
[2018-02-17 08:30] LABS: ALB/GLOB RATIO 1.2 (1.1-1.8); ALBUMIN 3.9 g/dL (3.0-4.8); ALT/SGPT 44 U/L (7-56); AST/SGOT 22 U/L (14-36); BLOOD UREA NITROGEN 20 mg/dL (7-21); CALCIUM 9.1 mg/dL (8.4-10.5); GFR AFRICAN-AMERICAN > 60; GFR NON-AFRICAN AMERICAN > 60
[2018-02-17] MEDS: methylPREDNISolone 1 GM in Sodium Chloride 0.9% 250 ML IV SCH (09:23)
--- NOTE | 2018-02-17 12:53 | CP.PCM.PN ---
Subjective - Date & Time of Evaluation Date of Evaluation: 02/17/18 Time of Evaluation: 12:49 - Subjective Subjective: Neurology Progress Note for Dr. Robles Patient seen and evaluated. No acute events reported overnight. Patient reports improved symptoms from presentation. She denies double vision. She indicates improvement in paraesthesias. Able to ambulate about the room. Objective - Vital Signs/Intake and Output Vital Signs (last 24 hours): Temp Pulse Resp BP Pulse Ox 97.8 F 61 20 103/67 96 02/17/18 06:00 02/17/18 06:00 02/17/18 06:00 02/17/18 06:00 02/17/18 06:00 Intake and Output: 02/17/18 02/17/18 06:59 18:59 Intake Total 960 Balance 960 - Medications Medications: Current Medications Acetaminophen (Tylenol 325mg Tab) 650 mg PO Q6H PRN PRN Reason: Fever >100.4 F Last Admin: 02/15/18 15:50 Dose: 650 mg Methylprednisolone 1 gm/ (Sodium Chloride) 250 mls @ 500 mls/hr IV DAILY GUANACO Stop: 02/18/18 10:29 Last Admin: 02/17/18 09:23 Dose: 500 mls/hr - Labs Labs: 02/17/18 07:35 02/17/18 07:35 PT 13.8 SECONDS (9.4-12.5) H 02/13/18 21:50 INR 1.21 (0.93-1.08) H 02/13/18 21:50 APTT 32.3 Seconds (25.1-36.5) 02/13/18 21:50 - Constitutional Appears: No Acute Distress - Head Exam Head Exam: ATRAUMATIC, NORMAL INSPECTION, NORMOCEPHALIC - Eye Exam Eye Exam: EOMI, PERRL. absent: Nystagmus, Scleral icterus Pupil Exam: absent: Irregular - ENT Exam ENT Exam: Mucous Membranes Moist - Neck Exam Neck Exam: Full ROM - Respiratory Exam Respiratory Exam: Clear to Ausculation Bilateral, NORMAL BREATHING PATTERN - Cardiovascular Exam Cardiovascular Exam: REGULAR RHYTHM, +S1, +S2 - GI/Abdominal Exam GI & Abdominal Exam: Soft, Normal Bowel Sounds - Neurological Exam Neurological Exam: Alert, Awake, CN II-XII Intact, Oriented x3 Additional comments: fine motor deficit, coordination intact Strength 5/5 in all four extremities Gait with mild instability Negative rhomberg - Psychiatric Exam Psychiatric exam: Normal Affect - Skin Skin Exam: Dry, Intact Assessment and Plan - Assessment and Plan (Free Text) Assessment: 27 yo female with past medical history of hereditary spherocytosis s/p splenectomy with clinical and MRI evidence suggestive of Multiple sclerosis Plan: Multiple Sclerosis - Brain MRI 02/15/18 : high signal lesions in the periventricular white matter and right middle cerebellar peduncle best seen on the flair images. Post contrast images demonstrate ring enhancement round several lesions the largest lesion in right parietal lobe white matter measuring 1.5 cm - Neck MRI 02/15/18 : 1.2 high signal lesion within the cervical cord at the T2 level consistent witha a demyelinating plaque, mild spinal canal stenosis, - Patient currently on day 11/14 1 gram Solumdrol therapy - Continue in hospital PT - Recommend for outpatient PT/OT and establishment with MS specialtist - Consult Dr. Garcia with Heme/Onc due to need for prolonged therapy for MS and the patient's hereditary spherocytosis s/p spleenectomy - Further recs per Dr. Robles Case and plan discussed with attending, Dr. Travis Ruggiero PGY-2
--- NOTE | 2018-02-17 16:37 | CP.PCM.PN ---
<Catrachito Sinclair - Last Filed: 02/17/18 16:33> Subjective - Date & Time of Evaluation Date of Evaluation: 02/17/18 Time of Evaluation: 11:05 - Subjective Subjective: Pt seen and examined at bedside. Denies any acute complaints, states she occasionally gets dizzy and ataxic when walking. States her numbness/tingling in upper exts is improving. Objective - Vital Signs/Intake and Output Vital Signs (last 24 hours): Temp Pulse Resp BP Pulse Ox 98.9 F 68 18 126/71 94 L 02/17/18 14:00 02/17/18 14:00 02/17/18 14:00 02/17/18 14:00 02/17/18 14:00 Intake and Output: 02/17/18 02/17/18 06:59 18:59 Intake Total 960 720 Balance 960 720 - Medications Medications: Current Medications Acetaminophen (Tylenol 325mg Tab) 650 mg PO Q6H PRN PRN Reason: Fever >100.4 F Last Admin: 02/15/18 15:50 Dose: 650 mg Methylprednisolone 1 gm/ (Sodium Chloride) 250 mls @ 500 mls/hr IV DAILY GUANACO Stop: 02/18/18 10:29 Last Admin: 02/17/18 09:23 Dose: 500 mls/hr - Labs Labs: 02/17/18 07:35 02/17/18 07:35 PT 13.8 SECONDS (9.4-12.5) H 02/13/18 21:50 INR 1.21 (0.93-1.08) H 02/13/18 21:50 APTT 32.3 Seconds (25.1-36.5) 02/13/18 21:50 - Constitutional Appears: Well, Non-toxic, No Acute Distress - Head Exam Head Exam: ATRAUMATIC, NORMAL INSPECTION, NORMOCEPHALIC - Eye Exam Eye Exam: EOMI, Normal appearance, PERRL - ENT Exam ENT Exam: Mucous Membranes Moist, Normal Oropharynx - Neck Exam Neck Exam: Full ROM, Normal Inspection - Respiratory Exam Respiratory Exam: Clear to Ausculation Bilateral, NORMAL BREATHING PATTERN - Cardiovascular Exam Cardiovascular Exam: REGULAR RHYTHM, +S1, +S2 - GI/Abdominal Exam GI & Abdominal Exam: Soft, Normal Bowel Sounds - Extremities Exam Extremities Exam: Full ROM, Normal Capillary Refill, Normal Inspection - Neurological Exam Neurological Exam: Alert, Awake, CN II-XII Intact, Oriented x3 Additional comments: Dysmetria b/l - Psychiatric Exam Psychiatric exam: Normal Affect, Normal Mood - Skin Skin Exam: Dry, Intact, Normal Color, Warm Assessment and Plan - Assessment and Plan (Free Text) Assessment: 27 year old female with PMH of hereditary spherocytosis who presents with new- onset multiple sclerosis exacerbation. Plan: Multiple sclerosis exacerbation -Sxs and imaging suspecting for MS -Neurology consulted, f/u recs -CT: multifocal white matter ischemic change, cannot r/o demyelinating disorder -MRI brain: Innumerable high signal lesions in the periventricular white matter and right cerebellar peduncle, appearance compatible w/ demyelinating process such as multiple sclerosis. Postcontrast images demonstrate ring enhancement around severe lesions, the largest lesion in the R parietal lobe white matter measuring 1.5 cm. Enhancement may indicate active demyelination. -MRI spinal canal cervical: 1.2 high signal lesion within cervical cord at T2 consistent w/ a demyelinating plaque. Mild ventral ridging from C3/4-C6/7 which indent ventral thecal sac and contribute to mild spinal canal stenosis. Small superimposed central disc herniations at C5/6 and C6/7. -C/w steroids for management, tx for [address] Rapp (Neuro), today tx 4 /5. As per Dr. Rapp, pt will need to be on long-term management outpt. -Will continue to monitor clinically Leukocytosis -May be secondary to MS exacerbation/steroid administration -Sepsis w/u completed -Lumbar puncture: CSF glu 93, total protein 84; bacterial infection ruled out, further studies pending. 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 Baird, attending Catrachito Sinclair DO, PGY-1, Supervisor [employer] Pager #[phone] <Tien Baird - Last Filed: 02/19/18 12:25> Objective - Vital Signs/Intake and Output Vital Signs (last 24 hours): Temp Pulse Resp BP Pulse Ox 99.5 F 61 16 120/73 98 02/18/18 13:33 02/18/18 13:33 02/18/18 13:33 02/18/18 13:33 02/18/18 13:33 - Labs Labs: 02/18/18 09:45 02/18/18 09:45 PT 13.8 SECONDS (9.4-12.5) H 02/13/18 21:50 INR 1.21 (0.93-1.08) H 02/13/18 21:50 APTT 32.3 Seconds (25.1-36.5) 02/13/18 21:50 Attending/Attestation - Attestation I have personally seen and examined this patient.: Yes I have fully participated in the care of the patient.: Yes I have reviewed all pertinent clinical information, including history, physical exam and plan: Yes Notes (Text): 02/19/18 12:24 Medical record note made by the resident after discussion with my direction and input after the patient was personally seen and examined by me. I have reviewed the chart and agree that the record accurately reflects by personal performance of the history, physical exam, data review, and medical decision-making, in the course for the patient. I have also personally directed the plan of care. 27 yo female with past medical history of hereditary spherocytosis s/p splenectomy with clinical and MRI evidence suggestive of Multiple sclerosis ( Brain MRI 02/15/18 : high signal lesions in the periventricular white matter and right middle cerebellar peduncle best seen on the flair images. Post contrast images demonstrate ring enhancement round several lesions the largest lesion in right parietal lobe white matter measuring 1.5 cm, Neck MRI 02/15/18 : 1.2 high signal lesion within the cervical cord at the T2 level consistent witha a demyelinating plaque, mild spinal canal stenosis, Patient currently on day 11/14 1 gram Solumdrol therapy Continue in hospital PT
[2018-02-18 08:01] VITALS: PULSE 61
[2018-02-18 09:52] LABS: GRAN # 13.54 (1.4-6.5); GRAN % 68.9 % (50.0-68.0); HEMOGLOBIN 11.9 g/dL (12.0-16.0); LYMPH # 5.1 (1.2-3.4); LYMPH % 25.7 % (22.0-35.0); MEAN CELL VOLUME 71.6 fl (80.0-105.0); MEAN CORPUSCULAR HEMOGLOBIN 22.5 pg (25.0-35.0); MEAN CORPUSCULAR HGB CONC 31.4 g/dl (31.0-37.0); MEAN PLATELET VOLUME 9.8 fl (7.0-11.0); MONO # 1.1 (0.1-0.6); MONO % 5.4 % (1.0-6.0); RBC 5.29 10^6/uL (3.5-6.1); RED CELL DISTRIBUTION WIDTH 21.8 % (11.5-14.5); WHITE BLOOD COUNT 19.7 10^3/ul (4.5-11.0)
[2018-02-18 10:19] LABS: ALB/GLOB RATIO 1.2 (1.1-1.8); ALBUMIN 3.7 g/dL (3.0-4.8); ALT/SGPT 41 U/L (7-56); AST/SGOT 29 U/L (14-36); BLOOD UREA NITROGEN 19 mg/dL (7-21); CALCIUM 9.1 mg/dL (8.4-10.5); GFR AFRICAN-AMERICAN > 60; GFR NON-AFRICAN AMERICAN > 60
[2018-02-18] MEDS: methylPREDNISolone 1 GM in Sodium Chloride 0.9% 250 ML IV SCH (10:29)
[2018-02-18 13:35] VITALS: BP 120/73; RESP 16; TEMP 99.5; O2SAT 98
[2018-02-18] MEDS ORDERED: Pneumococcal 23-Valent Vaccine IM ONE (14:20)
--- NOTE | 2018-02-18 15:10 | CP.PCM.DIS ---
<Catrachito Sinclair - Last Filed: 02/18/18 14:55> Provider - Provider Date of Admission: 02/15/18 14:54 Attending physician: Tien Baird MD Primary care physician: Roger Graham DO Time Spent in preparation of Discharge (in minutes): 45 Hospital Course - Lab Results Lab Results: Most Recent Lab Values WBC 19.7 10^3/ul (4.5-11.0) H 02/18/18 09:45 RBC 5.29 10^6/uL (3.5-6.1) 02/18/18 09:45 Hgb 11.9 g/dL (12.0-16.0) L 02/18/18 09:45 Hct 37.9 % (36.0-48.0) 02/18/18 09:45 MCV 71.6 fl (80.0-105.0) L 02/18/18 09:45 MCH 22.5 pg (25.0-35.0) L 02/18/18 09:45 MCHC 31.4 g/dl (31.0-37.0) 02/18/18 09:45 RDW 21.8 % (11.5-14.5) H 02/18/18 09:45 Plt Count 580 10^3/uL (120.0-450.0) H 02/18/18 09:45 MPV 9.8 fl (7.0-11.0) 02/18/18 09:45 Gran % 68.9 % (50.0-68.0) H 02/18/18 09:45 Lymph % (Auto) 25.7 % (22.0-35.0) 02/18/18 09:45 Allen % (Auto) 5.4 % (1.0-6.0) 02/18/18 09:45 Eos % (Auto) 0.0 % (1.5-5.0) L 02/18/18 09:45 Baso % (Auto) 0.0 % (0.0-3.0) 02/18/18 09:45 Gran # 13.54 (1.4-6.5) H 02/18/18 09:45 Lymph # (Auto) 5.1 (1.2-3.4) H 02/18/18 09:45 Allen # (Auto) 1.1 (0.1-0.6) H 02/18/18 09:45 Eos # (Auto) 0.0 (0.0-0.7) 02/18/18 09:45 Baso # (Auto) 0.00 K/mm3 (0.0-2.0) 02/18/18 09:45 PT 13.8 SECONDS (9.4-12.5) H 02/13/18 21:50 INR 1.21 (0.93-1.08) H 02/13/18 21:50 APTT 32.3 Seconds (25.1-36.5) 02/13/18 21:50 pO2 28 mm/Hg (30-55) L 02/13/18 22:05 VBG pH 7.34 (7.32-7.43) 02/13/18 22:05 VBG pCO2 50.0 (40-60) 02/13/18 22:05 VBG HCO3 27.0 mmol/l (21-28) 02/13/18 22:05 VBG Total CO2 28.5 mmol.L (22-28) H 02/13/18 22:05 VBG O2 Sat (Calc) 66.9 % (40-65) H 02/13/18 22:05 VBG Base Excess 0.5 mmol/L (0.0-2.0) 02/13/18 22:05 VBG Potassium 4.4 mmol/L (3.6-5.2) 02/13/18 22:05 Sodium 138.0 mmol/L (132-148) 02/13/18 22:05 Chloride 106.0 mmol/L (98-107) 02/13/18 22:05 Glucose 109 mg/dl (65-105) H 02/13/18 22:05 Lactate 1.2 mmol/L (0.7-2.1) 02/13/18 22:05 FiO2 21.0 % 02/13/18 22:05 Sodium 143 mmol/L (132-148) 02/18/18 09:45 Potassium 3.8 mmol/L (3.6-5.0) 02/18/18 09:45 Chloride 105 mmol/L (98-107) 02/18/18 09:45 Carbon Dioxide 27 mmol/L (21-33) 02/18/18 09:45 Anion Gap 15 (10-20) 02/18/18 09:45 BUN 19 mg/dL (7-21) 02/18/18 09:45 Creatinine 0.7 mg/dl (0.7-1.2) 02/18/18 09:45 Est GFR ( Amer) > 60 02/18/18 09:45 Est GFR (Non-Af Amer) > 60 02/18/18 09:45 Random Glucose 176 mg/dL (70-110) H 02/18/18 09:45 Calcium 9.1 mg/dL (8.4-10.5) 02/18/18 09:45 Phosphorus 4.4 mg/dL (2.5-4.5) 02/13/18 21:50 Magnesium 2.1 mg/dL (1.7-2.2) 02/13/18 21:50 Total Bilirubin 0.6 mg/dL (0.2-1.3) 02/18/18 09:45 AST 29 U/L (14-36) 02/18/18 09:45 ALT 41 U/L (7-56) 02/18/18 09:45 Alkaline Phosphatase 53 U/L (38-126) 02/18/18 09:45 Total Protein 7.0 g/dL (5.8-8.3) 02/18/18 09:45 Albumin 3.7 g/dL (3.0-4.8) 02/18/18 09:45 Globulin 3.2 gm/dL 02/18/18 09:45 Albumin/Globulin Ratio 1.2 (1.1-1.8) 02/18/18 09:45 TSH 3rd Generation 4.28 mIU/mL (0.46-4.68) 02/14/18 06:30 Venous Blood Potassium 4.4 mmol/L (3.6-5.2) 02/13/18 22:05 Urine Color Yellow (YELLOW) 02/13/18 21:10 Urine Appearance Clear (CLEAR) 02/13/18 21:10 Urine pH 6.5 (4.7-8.0) 02/13/18 21:10 Ur Specific [place] <= 1.005 (1.005-1.035) 02/13/18 21:10 Urine Protein Negative mg/dL (<30 mg/dL) 02/13/18 21:10 Urine Glucose (UA) Negative mg/dL (NEGATIVE) 02/13/18 21:10 Urine Ketones Negative mg/dL (NEGATIVE) 02/13/18 21:10 Urine Blood Trace-intact (NEGATIVE) H 02/13/18 21:10 Urine Nitrate Negative (NEGATIVE) 02/13/18 21:10 Urine Bilirubin Negative (NEGATIVE) 02/13/18 21:10 Urine Urobilinogen 0.2 E.U./dL (<1 E.U./dL) 02/13/18 21:10 Ur Leukocyte Esterase Negative Mariel/uL (NEGATIVE) 02/13/18 21:10 Urine RBC 0 - 2 /hpf (0-2) 02/13/18 21:10 Urine WBC Negative /hpf (0-6) 02/13/18 21:10 CSF Glucose 93 mg/dL (40-70) H 02/14/18 15:08 CSF Total Protein TNP 02/14/18 15:08 CSF Prealbumin TNP 02/14/18 15:08 CSF Albumin TNP 02/14/18 15:08 CSF Oflhm-2-Rhliogei TNP 02/14/18 15:08 CSF Qhfjd-9-Fhewwfxq TNP 02/14/18 15:08 CSF Beta Globulin TNP 02/14/18 15:08 CSF Gamma Globulin TNP 02/14/18 15:08 CSF PEP Interpret TNP 02/14/18 15:08 CSF [place] IgG Ab 0.78 02/14/18 15:08 CSF [place] IgM Ab 0.00 02/14/18 15:08 HIV 1&2 Ag/Ab, 4th Gen Nonreactive (Nonreactive) 02/14/18 09:07 - Hospital Course Hospital Course: This is a 27 y o female PMHx hereditary spherocytosis s/p splenectomy who presented to the ED on 02/14/18 with blurry vision, dizziness, numbness, tingling in upper and lower extremities bilaterally. Dizziness as per pt was going on for 2 weeks and was getting worse, and pt stated she felt as if she was going to fall over. Blurry vision was also occurring on and off for 2 weeks. Pt reported constant numbness/tingling in hands for 2 mos. Pt at time denied headaches, changes in sensation, chest pain, shortness of breath, nausea, vomiting or abdominal pain. Pt had leukocytosis on admission, and had blood and urine cxs that were negative, and was likely secondary to her multiple sclerosis exacerbation. Pt had CT done in ED which demonstrated ring-enhancing lesions suggestive of multiple sclerosis. MRI demonstrated several lesion enhancements in the brain, one most prominent in the R parietal lobe suggestive of multiple sclerosis. Neurology was consulted (Dr. Rapp) due to patient's symptoms and to rule out multiple sclerosis as etiology for symptoms. Pt was thus diagnosed with acute multiple sclerosis exacerbation as per neurology and pt was given a 5 day course of IV solumedrol for treatment. After 2 days of steroid therapy, pt reported improvement of dizziness, numbness/tingling in extremities, and weakness. On day of discharge, pt was ambulating, tolerating PO diet, voiding well without concerns, and stated her symptoms had improved. She was discharged to home in stable condition on 02/18/18, with instructions to follow-up with [facility] for appt on 02/24/18 at 2:00 pm, Neurology (Dr. Rapp/Travis), and Hematology/Oncology (Dr. Garcia), within 1-2 weeks of discharge. Pt was advised to continue home medications and start folic acid 1 mg daily. Discharge Exam - Head Exam Head Exam: ATRAUMATIC, NORMAL INSPECTION, NORMOCEPHALIC - Eye Exam Eye Exam: EOMI, Normal appearance, PERRL - ENT Exam ENT Exam: Mucous Membranes Moist, Normal Oropharynx - Neck Exam Neck exam: Full Rom, Meningismus - Respiratory Exam Respiratory Exam: Clear to PA & Lateral, NORMAL BREATHING PATTERN - Cardiovascular Exam Cardiovascular Exam: REGULAR RHYTHM, +S1, +S2 - GI/Abdominal Exam GI & Abdominal Exam: Normal Bowel Sounds, Soft - Extremities Exam Extremities exam: full ROM, normal capillary refill, normal inspection, pedal pulses present - Neurological Exam Neurological exam: Alert, CN II-XII Intact, Normal Gait, Oriented x3 - Psychiatric Exam Psychiatric exam: Normal Affect, Normal Mood - Skin Skin Exam: Dry, Intact, Normal Color, Warm Discharge Plan - Discharge Medications Prescriptions: Vikas/Vit B12/Folic Acid/Vit B6 [Folic Acid-Vit B6-Vit B12 Tab] 1 each PO DAILY # 90 tablet Ferrous Sulfate [High Potency Iron] 1 tab PO DAILY #90 tablet - Follow Up Plan Condition: FAIR Disposition: HOME/ ROUTINE Instructions: Multiple Sclerosis in Adults, Preventing Falls, Why Vaccines Are Important for Everyone, Leukocytosis (DC), Leukocytosis (GEN) Additional Instructions: Please follow-up with Dr. Rapp within 1 week of discharge (Neurology). Please follow-up with [facility] on 02/24/18 at 2:00 pm after hopsital discharge. Please call Dr. Castillo's office (Hematology/Oncology) for appointment in clinic within 1-2 weeks of discharge. #[phone] Should symptoms recur or worsen for you, please return to your nearest emergency department. Take all medications as prescribed. Referrals: Roger Graham DO [Primary Care Provider] - <Tien Baird - Last Filed: 02/19/18 12:28> Provider - Provider Date of Admission: 02/15/18 14:54 Attending physician: Tien Baird MD Primary care physician: Roger Graham DO Hospital Course - Lab Results Lab Results: Most Recent Lab Values WBC 19.7 10^3/ul (4.5-11.0) H 02/18/18 09:45 RBC 5.29 10^6/uL (3.5-6.1) 02/18/18 09:45 Hgb 11.9 g/dL (12.0-16.0) L 02/18/18 09:45 Hct 37.9 % (36.0-48.0) 02/18/18 09:45 MCV 71.6 fl (80.0-105.0) L 02/18/18 09:45 MCH 22.5 pg (25.0-35.0) L 02/18/18 09:45 MCHC 31.4 g/dl (31.0-37.0) 02/18/18 09:45 RDW 21.8 % (11.5-14.5) H 02/18/18 09:45 Plt Count 580 10^3/uL (120.0-450.0) H 02/18/18 09:45 MPV 9.8 fl (7.0-11.0) 02/18/18 09:45 Gran % 68.9 % (50.0-68.0) H 02/18/18 09:45 Lymph % (Auto) 25.7 % (22.0-35.0) 02/18/18 09:45 Allen % (Auto) 5.4 % (1.0-6.0) 02/18/18 09:45 Eos % (Auto) 0.0 % (1.5-5.0) L 02/18/18 09:45 Baso % (Auto) 0.0 % (0.0-3.0) 02/18/18 09:45 Gran # 13.54 (1.4-6.5) H 02/18/18 09:45 Lymph # (Auto) 5.1 (1.2-3.4) H 02/18/18 09:45 Allen # (Auto) 1.1 (0.1-0.6) H 02/18/18 09:45 Eos # (Auto) 0.0 (0.0-0.7) 02/18/18 09:45 Baso # (Auto) 0.00 K/mm3 (0.0-2.0) 02/18/18 09:45 PT 13.8 SECONDS (9.4-12.5) H 02/13/18 21:50 INR 1.21 (0.93-1.08) H 02/13/18 21:50 APTT 32.3 Seconds (25.1-36.5) 02/13/18 21:50 pO2 28 mm/Hg (30-55) L 02/13/18 22:05 VBG pH 7.34 (7.32-7.43) 02/13/18 22:05 VBG pCO2 50.0 (40-60) 02/13/18 22:05 VBG HCO3 27.0 mmol/l (21-28) 02/13/18 22:05 VBG Total CO2 28.5 mmol.L (22-28) H 02/13/18 22:05 VBG O2 Sat (Calc) 66.9 % (40-65) H 02/13/18 22:05 VBG Base Excess 0.5 mmol/L (0.0-2.0) 02/13/18 22:05 VBG Potassium 4.4 mmol/L (3.6-5.2) 02/13/18 22:05 Sodium 138.0 mmol/L (132-148) 02/13/18 22:05 Chloride 106.0 mmol/L (98-107) 02/13/18 22:05 Glucose 109 mg/dl (65-105) H 02/13/18 22:05 Lactate 1.2 mmol/L (0.7-2.1) 02/13/18 22:05 FiO2 21.0 % 02/13/18 22:05 Sodium 143 mmol/L (132-148) 02/18/18 09:45 Potassium 3.8 mmol/L (3.6-5.0) 02/18/18 09:45 Chloride 105 mmol/L (98-107) 02/18/18 09:45 Carbon Dioxide 27 mmol/L (21-33) 02/18/18 09:45 Anion Gap 15 (10-20) 02/18/18 09:45 BUN 19 mg/dL (7-21) 02/18/18 09:45 Creatinine 0.7 mg/dl (0.7-1.2) 02/18/18 09:45 Est GFR ( Amer) > 60 02/18/18 09:45 Est GFR (Non-Af Amer) > 60 02/18/18 09:45 Random Glucose 176 mg/dL (70-110) H 02/18/18 09:45 Calcium 9.1 mg/dL (8.4-10.5) 02/18/18 09:45 Phosphorus 4.4 mg/dL (2.5-4.5) 02/13/18 21:50 Magnesium 2.1 mg/dL (1.7-2.2) 02/13/18 21:50 Total Bilirubin 0.6 mg/dL (0.2-1.3) 02/18/18 09:45 AST 29 U/L (14-36) 02/18/18 09:45 ALT 41 U/L (7-56) 02/18/18 09:45 Alkaline Phosphatase 53 U/L (38-126) 02/18/18 09:45 Total Protein 7.0 g/dL (5.8-8.3) 02/18/18 09:45 Albumin 3.7 g/dL (3.0-4.8) 02/18/18 09:45 Globulin 3.2 gm/dL 02/18/18 09:45 Albumin/Globulin Ratio 1.2 (1.1-1.8) 02/18/18 09:45 TSH 3rd Generation 4.28 mIU/mL (0.46-4.68) 02/14/18 06:30 Venous Blood Potassium 4.4 mmol/L (3.6-5.2) 02/13/18 22:05 Urine Color Yellow (YELLOW) 02/13/18 21:10 Urine Appearance Clear (CLEAR) 02/13/18 21:10 Urine pH 6.5 (4.7-8.0) 02/13/18 21:10 Ur Specific [place] <= 1.005 (1.005-1.035) 02/13/18 21:10 Urine Protein Negative mg/dL (<30 mg/dL) 02/13/18 21:10 Urine Glucose (UA) Negative mg/dL (NEGATIVE) 02/13/18 21:10 Urine Ketones Negative mg/dL (NEGATIVE) 02/13/18 21:10 Urine Blood Trace-intact (NEGATIVE) H 02/13/18 21:10 Urine Nitrate Negative (NEGATIVE) 02/13/18 21:10 Urine Bilirubin Negative (NEGATIVE) 02/13/18 21:10 Urine Urobilinogen 0.2 E.U./dL (<1 E.U./dL) 02/13/18 21:10 Ur Leukocyte Esterase Negative Mariel/uL (NEGATIVE) 02/13/18 21:10 Urine RBC 0 - 2 /hpf (0-2) 02/13/18 21:10 Urine WBC Negative /hpf (0-6) 02/13/18 21:10 CSF Glucose 93 mg/dL (40-70) H 02/14/18 15:08 CSF Total Protein TNP 02/14/18 15:08 CSF Prealbumin TNP 02/14/18 15:08 CSF Albumin TNP 02/14/18 15:08 CSF Ypxlu-2-Zdlmcxvc TNP 02/14/18 15:08 CSF Vbqhf-6-Tyaagdql TNP 02/14/18 15:08 CSF Beta Globulin TNP 02/14/18 15:08 CSF Gamma Globulin TNP 02/14/18 15:08 CSF PEP Interpret TNP 02/14/18 15:08 CSF [place] IgG Ab 0.78 02/14/18 15:08 CSF [place] IgM Ab 0.00 02/14/18 15:08 HIV 1&2 Ag/Ab, 4th Gen Nonreactive (Nonreactive) 02/14/18 09:07 Attending/Attestation - Attestation I have personally seen and examined this patient.: Yes I have fully participated in the care of the patient.: Yes I have reviewed all pertinent clinical information, including history, physical exam and plan: Yes Notes (Text): 02/19/18 12:26 Medical record note made by the resident after discussion with my direction and input after the patient was personally seen and examined by me. I have reviewed the chart and agree that the record accurately reflects by personal performance of the history, physical exam, data review, and medical decision-making, in the course for the patient. I have also personally directed the plan of care. 27 yo female with past medical history of hereditary spherocytosis s/p splenectomy with clinical and MRI evidence suggestive of Multiple sclerosis ( Brain MRI 02/15/18 : high signal lesions in the periventricular white matter and right middle cerebellar peduncle best seen on the flair images. Post contrast images demonstrate ring enhancement round several lesions the largest lesion in right parietal lobe white matter measuring 1.5 cm, Neck MRI 02/15/18 : 1.2 high signal lesion within the cervical cord at the T2 level consistent witha a demyelinating plaque, mild spinal canal stenosis) Patient was treated with 5 days course of 1 gram Solumdrol therapy.Her symptoms has improved.Patient is ambulatory at the time of discharge. She will be discharged home and will follow up with Neurology . Management plan was discussed in detail with patient. Education was provided.
[2018-02-19 17:01] LABS: IGG INDEX CSF 2.72 (<0.66); SYNTHESIS RATE IGG CSF 58.2 mg/24 h (-9.9-3.3)
== END 2018-02-18 16:20 | disposition home or self-care (01) | DRG 13 ==
LOC: ED 19:20 → ERH 02-14 00:35 → 5RNO 02-14 01:53 → OBSVTOIN 02-15 14:54
PROVIDERS: ADMIT Internal Medicine; ATTEND Internal Medicine
PROC: 009U3ZX Drainage of Spinal Canal, Percutaneous Approach, Diagnostic (ICD-10-PCS; principal; 2018-02-14)
DX: G35 Multiple sclerosis (principal); D72.829 Elevated white blood cell count, unspecified; T38.0X5A Adverse effect of glucocorticoids and synthetic analogues, initial encounter; Z90.81 Acquired absence of spleen; Z86.2 Personal history of diseases of the blood and blood-forming organs and certain disorders involving the immune mechanism; Z88.0 Allergy status to penicillin